=== PATIENT | male | born 1950 | race Caucasian/White ===

== ENCOUNTER 2017-02-19 09:07 | Outpatient (CLI) | payer MEDICARE, OTHER ==
--- NOTE | 2017-02-19 13:26 | CT ---
CT THORAX NONCONTRAST: Low-dose pulmonary screening scan. DATE: 02/19/17. HISTORY: A 66-year-old male smoker for lung cancer screening. COMPARISON: 01/20/16. FINDINGS: In the posterior segment of the right upper lobe, there is a new, faint, irregularly shaped noncalcif ied focal pulmonary nodular density, close to the posterolateral pleural surface, with ill-defined ma rgins that make measurement difficult. It is approximately 4 - 7 mm (axial image 85 of 258, series 2 ; coronal image 111 of 167, series 601; sagittal image 62 of 232, series 602). The previously described tiny, round, well-circumscribed, anterolateral pleural-based right upper lob e nodular density is stable and appears benign. There are no other pulmonary nodules. No thoracic a ortic aneurysm. No mediastinal lymphadenopathy. No pleural effusion, cardiomegaly, pericardial effu edison, or pneumothorax. IMPRESSION: 1. Lung RADS category 3 (probably benign, 1-2% chance of malignancy). 2. New ill-defined pulmonary nodule in the posterior segment of right upper lobe. 3. Recommend 6-month followup low-dose CT. KRISAT Negrete POS: VANI
== END 2017-02-19 09:08 | disposition home or self-care (01) ==
LOC: CT 09:07
PROVIDERS: ATTEND Family Medicine
DX: Z00.00 Encounter for general adult medical examination without abnormal findings (principal); Z87.891 Personal history of nicotine dependence; R91.1 Solitary pulmonary nodule
CPT/HCPCS: G0297

== ENCOUNTER 2020-05-27 09:28 | Outpatient (CLI) | payer MEDICARE, OTHER | END 2020-05-27 09:29 | disposition home or self-care (01) | LOC: BICCT 09:28 | PROVIDERS: ATTEND Family Medicine | DX: R91.1 Solitary pulmonary nodule (principal) | CPT/HCPCS: 71250 ==

== ENCOUNTER 2022-06-13 07:58 | Outpatient (CLI) | payer MEDICARE ==
[2022-06-13] MEDS ORDERED: Magnevist 469MG/ML 20 ML VIAL ONE (09:57)
== END 2022-06-13 07:59 | disposition home or self-care (01) ==
LOC: TBSIIMAG 07:58
PROVIDERS: ATTEND Urology
DX: C61 Malignant neoplasm of prostate (principal)
CPT/HCPCS: 72197; A9579

== ENCOUNTER 2022-07-19 09:13 | Outpatient (CLI) | payer MEDICARE | END 2022-07-19 09:14 | disposition home or self-care (01) | LOC: NM 09:13 | PROVIDERS: ATTEND Urology | DX: C61 Malignant neoplasm of prostate (principal) | CPT/HCPCS: 78306; A9503 ==

== ENCOUNTER 2022-10-01 23:34 | Emergency (ER) | payer MEDICARE ==
[2022-10-01] MEDS ORDERED: EPINEPHrine 1 MG/ML VIAL ONE (23:40)
== END 2022-10-01 23:45 | disposition expired ==
LOC: ERS 23:34
DX: I46.9 Cardiac arrest, cause unspecified (principal); I21.19 ST elevation (STEMI) myocardial infarction involving other coronary artery of inferior wall
CPT/HCPCS: 96374; 99285; J0171